=== PATIENT | female | born 1970 | race Caucasian/White ===

== ENCOUNTER 2017-09-06 18:11 | Emergency (ER) | payer OTHER ==
[~2017-09-06] VITALS: Ht 162.6 cm; Wt 79.8 kg
[~2017-09-06 18:11] MED LIST: AMOXICILLIN500 MG PO; CEFTIN500 MG PO; CIPRO500 M1; DELTASONE DOSEPA5 MG; GABAPENTIN400 MG PO; LEVAQUIN500 MG PO; LEVAQUIN750 MG PO; LISINOPRIL5 MG PO; Norvasc PO; PREDNISONE20 MG PO; PREVACID30 MG PO; PROVENTIL,2.5 MG/3 M IH; PROVENTIL,200 INHALA; SYMBICORT60 INHALAT IN; predniSONE PO
[2017-09-06 21:11] LABS: HEMATOCRIT 37.9 % (36.0-46.0); MCH 27.5 PG (29.0-34.0); MCHC 33.5 G/DL (30.0-36.0); MEAN PLAT.VOLUME 9.4 uM^3 (9.5-12.4); PLATELET COUNT 290 K/uL (156-360); RBC DIS.WIDTH-CV 13.3 % (11.8-14.6); RBC DIS.WIDTH-SD 39.9 % (39-53); RED BLOOD COUNT 4.62 M/uL (3.80-5.20); WHITE BLOOD COUNT 8.6 K/uL (4.1-10.2)
[2017-09-06 21:21] LABS: CHLORIDE 106 mEq/L (99-109); POTASSIUM 3.9 mEq/L (3.7-5.4); SODIUM 141 mEq/L (136-147)
[2017-09-06 21:23] LABS: GLUCOSE 91 mg/dL (70-99)
[2017-09-06 21:24] LABS: ANION GAP 11 MEQ/L (2-14)
[2017-09-06 21:25] LABS: TOTAL BILIRUBIN 0.3 mg/dL (0.0-1.0)
[2017-09-06 21:26] LABS: ALKALINE PHOSPHATASE 57 IU/L (3-129); GFR ESTIMATE (CALCULATED) > 59 mL/min/
[2017-09-06 21:28] LABS: UREA NITROGEN (BUN) 12 mg/dL (9-23)
[2017-09-06 21:39] LABS: QUANTITATIVE HCG < 4.0 MIU/ML
[2017-09-07] MEDS ORDERED: AUGMENTIN875 MG PO (00:22)
[2017-09-07 00:34] VITALS: BP 128/65
== END 2017-09-07 00:34 | disposition home or self-care (01) ==
LOC: EXP 18:11 → EME 18:11 → EXP 09-07 00:34
PROVIDERS: Physician Assistant
DX: R59.1 Generalized enlarged lymph nodes (principal); K11.20 Sialoadenitis, unspecified; H92.02 Otalgia, left ear; R51 Headache; J45.909 Unspecified asthma, uncomplicated; I10 Essential (primary) hypertension
CPT/HCPCS: 70460; 80053; 84702; 85027; 99281; 99284; J1885

== ENCOUNTER 2018-01-12 23:08 | Emergency (ER) | payer OTHER ==
[~2018-01-12] VITALS: Ht 162.6 cm; Wt 94.4 kg
[~2018-01-12 23:08] MED LIST changes: +AUGMENTIN875 MG PO
[2018-01-12 23:34] LABS: HEMATOCRIT 37.2 % (36.0-46.0); HEMOGLOBIN 12.8 G/DL (11.9-15.5); MCHC 34.4 G/DL (30.0-36.0); MCV 84.2 FL (83-99); PLATELET COUNT 339 K/uL (156-360); RBC DIS.WIDTH-CV 13.3 % (11.8-14.6); RBC DIS.WIDTH-SD 41.2 % (39-53); RED BLOOD COUNT 4.42 M/uL (3.80-5.20); WHITE BLOOD COUNT 7.7 K/uL (4.1-10.2)
[2018-01-12 23:44] LABS: CHLORIDE 104 mEq/L (99-109); POTASSIUM 3.8 mEq/L (3.7-5.4); SODIUM 140 mEq/L (136-147)
[2018-01-12 23:46] LABS: GLUCOSE 92 mg/dL (70-99)
[2018-01-12 23:50] LABS: CREATININE 0.7 mg/dL (0.6-1.3); GFR ESTIMATE (CALCULATED) > 59 mL/min/
[2018-01-12 23:51] LABS: UREA NITROGEN (BUN) 11 mg/dL (9-23)
[2018-01-12 23:55] LABS: TROP-I INTERPRETATION NEGATIVE; TROPONIN-I < 0.01 ng/mL (0.0-0.30)
[2018-01-13] MEDS ORDERED: AZITHROMYCIN250 MG1 PO (02:23)
[2018-01-13] MEDS ORDERED: DUONEB 2.5-0.5 M3 ML AEROSOL (02:23)
[2018-01-13] MEDS ORDERED: PREDNISONE20 MG PO (02:23)
[2018-01-13 02:49] VITALS: BP 145/80
== END 2018-01-13 02:55 | disposition home or self-care (01) ==
LOC: EME 23:08
DX: J45.901 Unspecified asthma with (acute) exacerbation (principal); J18.9 Pneumonia, unspecified organism; R94.31 Abnormal electrocardiogram [ECG] [EKG]; I10 Essential (primary) hypertension; K21.9 Gastro-esophageal reflux disease without esophagitis; M79.7 Fibromyalgia; Z79.51 Long term (current) use of inhaled steroids; Z88.5 Allergy status to narcotic agent; Z88.8 Allergy status to other drugs, medicaments and biological substances
CPT/HCPCS: 71046; 80048; 84484; 85027; 93005; 94640; 99281; 99284; J7512

== ENCOUNTER 2018-01-25 11:46 | Emergency (ER) | payer OTHER ==
[~2018-01-25] VITALS: Ht 162.6 cm; Wt 90.9 kg
[~2018-01-25 11:46] MED LIST changes: +AZITHROMYCIN250 MG1 PO; +DUONEB 2.5-0.5 M3 ML AEROSOL
[2018-01-25 13:19] VITALS: BP 125/84
== END 2018-01-25 13:24 | disposition home or self-care (01) ==
LOC: EME 11:46
PROC: 2W3QX1Z Immobilization of Right Lower Leg using Splint (ICD-10-PCS; principal; 2018-01-25)
DX: S92.214A Nondisplaced fracture of cuboid bone of right foot, initial encounter for closed fracture (principal); W10.9XXA Fall (on) (from) unspecified stairs and steps, initial encounter; Y93.01 Activity, walking, marching and hiking; I10 Essential (primary) hypertension; J45.909 Unspecified asthma, uncomplicated; G89.29 Other chronic pain; M54.2 Cervicalgia; M54.9 Dorsalgia, unspecified; M79.7 Fibromyalgia; Z88.5 Allergy status to narcotic agent; Z88.8 Allergy status to other drugs, medicaments and biological substances
CPT/HCPCS: 73610; 99281; 99285